=== PATIENT | female | born 1985 | race Caucasian/White ===

== ENCOUNTER 2016-12-25 17:11 | Emergency (ER) | payer OTHER ==
--- NOTE | 2016-12-25 18:42 | UC ---
Throat Pain/Nasal Sabas HPI - HPI Summary HPI Summary: FIVE DAYS OF SINUS CONGESTION AND WORSENING ASTHMA. HAS BEEN USING ALBUTEROL INHALERS AND NEBULIZER TO TREAT WHEEZING. SINUS PRESSURE AND COUGH SEEM TO BE WORSENING OVER THE LAST THREE DAYS. NO FEVER. - History of Current Complaint Stated Complaint: SINUS/ASTHMA Time Seen by Provider: 12/25/16 18:09 Hx Obtained From: Patient Onset/Duration: Gradual Onset, Lasting Days, Still Present Severity: Moderate Cough: Productive Associated Signs & Symptoms: Positive: Wheezing, Hoarseness, Sinus Discomfort, Nasal Discharge - Epiglottits Risk Factors Epiglottis Risk Factors: Negative - Allergies/Home Medications Allergies/Adverse Reactions: Allergies Allergy/AdvReac Type Severity Reaction Status Date / Time Sulfa Antibiotics Allergy Hives Verified 10/19/16 16:00 fresh fruit and veggies Allergy See Comment Uncoded 10/19/16 16:00 PMH/Surg Hx/FS Hx/Imm Hx Previously Healthy: Yes Cardiovascular History Of: Reports: Hypertension - preg induced HTN - Surgical History Surgical History: Yes Surgery Procedure, Year, and Place: x2 Csections. Hysterectomy - Family History Known Family History: Positive: Other - positive FMH myalgia Negative: Respiratory Disease - Social History Occupation: Employed Full-time Lives: With Family Alcohol Use: None Substance Use Type: None Smoking Status (MU): Current Some Day Smoker Review of Systems Constitutional: Negative Skin: Negative Eyes: Negative ENT: Nasal Discharge Respiratory: Cough Cardiovascular: Negative Gastrointestinal: Negative Genitourinary: Negative Motor: Negative Neurovascular: Negative Musculoskeletal: Negative Neurological: Negative Psychological: Negative All Other Systems Reviewed And Are Negative: Yes Physical Exam Triage Information Reviewed: Yes Appearance: No Pain Distress, Well-Nourished, Ill-Appearing - MILD Vital Signs Reviewed: Yes Eye Exam: Normal Eyes: Positive: Conjunctiva Clear ENT: Positive: Hearing grossly normal, Pharynx normal, TM bulging, TM dull Dental Exam: Normal Neck exam: Normal Neck: Positive: Supple, Nontender Respiratory: Positive: Chest non-tender, Lungs clear, Normal breath sounds, No respiratory distress, No accessory muscle use, Wheezing - SCANT/FAINT; PATIENT HAD RECENTLY TAKEN NEBULIZER AT HOME Cardiovascular Exam: Normal Cardiovascular: Positive: RRR, No Murmur, Pulses Normal, Brisk Capillary Refill Abdominal Exam: Normal Abdomen Description: Positive: Nontender, No Organomegaly Musculoskeletal Exam: Normal Musculoskeletal: Positive: Strength Intact, ROM Intact, No Edema Neurological Exam: Normal Psychological Exam: Normal Psychological: Positive: Normal Response To Family Skin Exam: Normal Throat Pain/Nasal Course/Dx - Differential Dx/Diagnosis Differential Diagnosis/HQI/PQRI: Otitis Media, Pharyngitis, Sinusitis, URI Provider Diagnoses: SINUSITIS. BRONCHITIS WITH BRONCHOSPASM Discharge - Discharge Plan Condition: Stable Disposition: HOME Prescriptions: Benzonatate CAP* [Tessalon CAP*] 100 mg PO TID PRN #15 cap PRN Reason: Cough DOXYcycline CAP(*) [DOXYcycline 100MG CAP(*)] 100 mg PO BID #20 cap predniSONE TAB* [Deltasone TAB*] 10 mg PO DAILY #28 tab Patient Education Materials: Asthma (ED), Sinusitis (ED), Bronchospasm (ED) Referrals: IAN Bob [Primary Care Provider] -
[2016-12-25 18:51] VITALS: BP 137/77
== END 2016-12-25 19:07 | disposition home or self-care (01) ==
LOC: UCEAST 17:11
DX: J32.9 Chronic sinusitis, unspecified (principal); J20.9 Acute bronchitis, unspecified; Z88.2 Allergy status to sulfonamides; Z72.0 Tobacco use
CPT/HCPCS: 99211; G0463

== ENCOUNTER 2018-01-13 16:15 | Emergency (ER) | payer SELFPAY ==
[2018-01-13 16:40] VITALS: BP 146/89
--- NOTE | 2018-01-13 17:50 | UC ---
Throat Pain/Nasal Sabas HPI - HPI Summary HPI Summary: 32 yo female ill x 1 week progressively worsening facial pressure and pain now wheezing and out of her inhaler no f/c no CP or sob - History of Current Complaint Chief Complaint: UCRespiratory Stated Complaint: SINUSES Time Seen by Provider: 01/13/18 17:31 Hx Obtained From: Patient Hx Last Menstrual Period: hysterectomy Onset/Duration: Gradual Onset, Lasting Weeks Severity: Mild Pain Intensity: 4 Pain Scale Used: 0-10 Numeric Cough: Nonproductive Associated Signs & Symptoms: Positive: Sinus Discomfort, Nasal Discharge - Allergies/Home Medications Allergies/Adverse Reactions: Allergies Allergy/AdvReac Type Severity Reaction Status Date / Time Sulfa (Sulfonamide Allergy Swelling Verified 01/13/18 16:35 Antibiotics) Of Face,Lips,& Throat Home Medications: Home Medications Albuterol 2.5MG/3ML (0.083%)* [Ventolin 2.5 MG/3 ML NEB.STACEY*] 1 inh TID PRN 04/27 [History Confirmed 01/13/18] PMH/Surg Hx/FS Hx/Imm Hx Previously Healthy: Yes Respiratory History: Asthma, Bronchitis - Surgical History Surgical History: Yes Surgery Procedure, Year, and Place: x2 Csections. Hysterectomy. Tonsil - Family History Known Family History: Positive: Hypertension, Other - positive FMH myalgia Negative: Respiratory Disease - Social History Alcohol Use: None Substance Use Type: None Smoking Status (MU): Former Smoker Amount Used/How Often: 1/2ppd Review of Systems Constitutional: Fatigue Skin: Negative Eyes: Negative ENT: Ear Ache, Nasal Discharge, Sinus Congestion, Sinus Pain/Tenderness Respiratory: Cough, Other - wheezing Cardiovascular: Negative Gastrointestinal: Negative Genitourinary: Negative Motor: Negative Neurovascular: Negative Musculoskeletal: Negative Neurological: Negative Psychological: Negative Is Patient Immunocompromised?: No All Other Systems Reviewed And Are Negative: Yes Physical Exam Triage Information Reviewed: Yes Appearance: Well-Appearing, No Pain Distress, Well-Nourished Vital Signs: Initial Vital Signs Temp 98.2 F 01/13/18 16:35 Pulse 91 01/13/18 16:35 Resp 18 01/13/18 16:35 BP 146/89 01/13/18 16:35 Pulse Ox 100 01/13/18 16:35 Vital Signs Reviewed: Yes Eyes: Positive: Conjunctiva Clear ENT: Positive: Hearing grossly normal, Nasal congestion, Nasal drainage, TMs normal, Sinus tenderness, Uvula midline. Negative: Tonsillar swelling, Tonsillar exudate, Trismus, Muffled voice, Hoarse voice, Dental tenderness Dental Exam: Normal Neck: Positive: Supple, Nontender, No Lymphadenopathy Respiratory: Positive: Lungs clear, Normal breath sounds, No respiratory distress, No accessory muscle use, Wheezing - with forced expiration Cardiovascular: Positive: RRR, No Murmur Musculoskeletal: Positive: ROM Intact, No Edema Neurological: Positive: Alert Psychological Exam: Normal Skin Exam: Normal Throat Pain/Nasal Course/Dx - Differential Dx/Diagnosis Provider Diagnoses: acute sinusitis. bronchospasm Discharge - Discharge Plan Condition: Stable Disposition: HOME Prescriptions: Albuterol 2.5MG/3ML (0.083%)* [Ventolin 2.5 MG/3 ML NEB.STACEY*] 2.5 mg INH QID #1 neb.stacey Albuterol HFA INHALER* [Ventolin HFA Inhaler*] 2 puff INH QID #1 mdi Amoxicillin PO (*) [Amoxicillin 875 MG (*)] 875 mg PO BID #20 tab predniSONE [Deltasone] 40 mg PO DAILY #10 tab Patient Education Materials: Sinusitis (ED) Forms: *Work Release Referrals: IAN Bob [Primary Care Provider] - If Needed
== END 2018-01-13 17:50 | disposition home or self-care (01) ==
LOC: UCCORT 16:15
DX: J01.90 Acute sinusitis, unspecified (principal); J98.01 Acute bronchospasm; Z88.1 Allergy status to other antibiotic agents; Z87.891 Personal history of nicotine dependence
CPT/HCPCS: 99212; G0463

== ENCOUNTER 2018-11-22 08:02 | Emergency (ER) | payer BC, OTHER ==
[2018-11-22 08:23] VITALS: BP 125/60
[2018-11-22] MEDS ORDERED: Albuterol 2.5 MG/3 ML NEB.SOL* (0.083%) INH ONE (08:41)
--- NOTE | 2018-11-22 08:45 | UC ---
Throat Pain/Nasal Sabas HPI - HPI Summary HPI Summary: Patient has has increased sinus pressure and SOB over the past 2-3 weeks, she denies fever, does have chills, body aches, and overall malaise, has had upsest stomach frequently - History of Current Complaint Chief Complaint: UCRespiratory Stated Complaint: CONGESTION BILATERAL EAR SORE THROAT Time Seen by Provider: 11/22/18 08:20 Hx Obtained From: Patient Hx Last Menstrual Period: hysterectomy ?: No Onset/Duration: Sudden Onset, Lasting Weeks Severity: Moderate Pain Intensity: 0 Cough: Nonproductive Associated Signs & Symptoms: Positive: Dysphagia, Wheezing, Sinus Discomfort, Nasal Discharge - Allergies/Home Medications Allergies/Adverse Reactions: Allergies Allergy/AdvReac Type Severity Reaction Status Date / Time Sulfa (Sulfonamide Allergy Swelling Verified 11/22/18 08:13 Antibiotics) Of Face,Lips,& Throat Home Medications: Home Medications Albuterol HFA INHALER* [Ventolin HFA Inhaler*] 2 puff INH Q4H PRN 11/22/18 [ History] Phenylephrine/Dm/Acetaminop/GG [Mucinex Fast-Max Cold Flu] 1 liq PO PRN [History] PMH/Surg Hx/FS Hx/Imm Hx - Surgical History Surgical History: Yes Surgery Procedure, Year, and Place: x2 Csections. Hysterectomy. Tonsil - Family History Known Family History: Positive: Hypertension, Other - positive FMH myalgia Negative: Respiratory Disease - Social History Alcohol Use: Rare Substance Use Type: None Smoking Status (MU): Former Smoker Amount Used/How Often: 1/2ppd Review of Systems All Other Systems Reviewed And Are Negative: Yes Constitutional: Positive: Fatigue Skin: Positive: Negative Eyes: Positive: Eye Redness ENT: Positive: Sore Throat, Ear Ache, Nasal Discharge, Sinus Congestion, Sinus Pain/Tenderness Respiratory: Positive: Shortness Of Breath, Cough Cardiovascular: Positive: Negative Gastrointestinal: Positive: Negative Genitourinary: Positive: Negative Motor: Positive: Negative Neurovascular: Positive: Negative Musculoskeletal: Positive: Negative Neurological: Positive: Headache Psychological: Positive: Negative Is Patient Immunocompromised?: No Physical Exam Triage Information Reviewed: Yes Appearance: Ill-Appearing, Pain Distress, Obese Vital Signs: Initial Vital Signs Temp 97.6 F 11/22/18 08:17 Pulse 86 11/22/18 08:17 Resp 15 11/22/18 08:17 BP 125/60 11/22/18 08:17 Pulse Ox 98 11/22/18 08:17 Vital Signs Reviewed: Yes Eye Exam: Normal Eyes: Positive: Conjunctiva Inflamed ENT: Positive: Pharyngeal erythema - with PND, Nasal congestion Dental Exam: Normal Neck exam: Normal Respiratory: Positive: Chest non-tender, No respiratory distress, Decreased breath sounds, Wheezing, Inspiration Cardiovascular Exam: Normal Cardiovascular: Positive: RRR, No Murmur, Pulses Normal Abdomen Description: Positive: Nontender, No Organomegaly, Soft Musculoskeletal Exam: Normal Neurological Exam: Normal Psychological Exam: Normal Skin Exam: Normal Throat Pain/Nasal Course/Dx - Course Course Of Treatment: hx obtained, exam performed ,meds reviewed, neb treatement given for SOB and wheezing. treated for sinusitis and bronchitis - Differential Dx/Diagnosis Differential Diagnosis/HQI/PQRI: Influenza, Laryngitis, Otitis Media, Pharyngitis, Sinusitis, URI Provider Diagnosis: Sinusitis, Bronchitis Discharge - Sign-Out/Discharge Documenting (check all that apply): Patient Departure All imaging exams completed and their final reports reviewed: No Studies - Discharge Plan Condition: Stable Disposition: HOME Patient Education Materials: Acute Bronchitis (ED) Referrals: No Primary Care Phys,NOPCP [Primary Care Provider] - - Billing Disposition and Condition Condition: STABLE Disposition: Home
== END 2018-11-22 09:12 | disposition home or self-care (01) ==
LOC: UCCORT 08:02
DX: J32.9 Chronic sinusitis, unspecified (principal); J40 Bronchitis, not specified as acute or chronic; Z88.1 Allergy status to other antibiotic agents; Z87.891 Personal history of nicotine dependence
CPT/HCPCS: 99212; G0463

== ENCOUNTER 2019-01-13 11:15 | Day surgery (SDC) | payer BC ==
[~2019-01-13 11:15] MED LIST: Buffered Lidocaine 1% SYRIN* 1 ML/SYRINGE INTRADERM ONE; Gelfoam 12-7 ADSORBABL SPONGE* 1 EA SPONGE ONE; Lactated Ringers 1000 ML Bag* 1,000 ML IV SCH; Lidocaine 2% EPI 1:200000 MPF*10-20 ML VIAL ONE; Oxymetazoline 0.05% NASAL SPR* 15 ML BTL ONE; Triamcinolone Acetonide* 40 MG/ML 1 ML VIAL ONE
[2019-01-13] MEDS ORDERED: Midazolam* 1 MG/ML 2 ML VIAL (2 MG) ONE (13:13)
[2019-01-13] MEDS ORDERED: fentaNYL* 50 MCG/ML 2 ML VIAL (100 MCG VIAL) ONE ×2 (13:13→15:09)
[2019-01-13] MEDS ORDERED: Succinylcholine* 20 MG/ML 10 ML VIAL ONE (13:13)
[2019-01-13] MEDS ORDERED: Cocaine 4% TOPICAL* 4 ML TOP.SOLN ONE (13:34)
[2019-01-13] MEDS ORDERED: Triamcinolone Acetonide* 40 MG/ML 1 ML VIAL ONE (13:34)
[2019-01-13] MEDS ORDERED: Lidocaine 2% EPI 1:200000 MPF*10-20 ML VIAL ONE (13:35)
[2019-01-13] MEDS ORDERED: Gelfoam 12-7 ADSORBABL SPONGE* 1 EA SPONGE ONE ×3 (13:35→14:31)
[2019-01-13] MEDS ORDERED: Metoclopramide IV* 5 MG/ML 2 ML VIAL ONE (14:01)
[2019-01-13] MEDS ORDERED: Dexamethasone IV* 4 MG/ML 1 ML (4 MG) ONE (14:01)
[2019-01-13] MEDS ORDERED: Ondansetron INJ* 2 MG/ML VIAL ONE (14:01)
[2019-01-13] MEDS ORDERED: EPHEDrine (Pressors)* 50 MG/ML VIAL ONE (14:12)
[2019-01-13] MEDS ORDERED: Naloxone* 0.4 MG/ML 1 ML VIAL IV PRN (14:14)
[2019-01-13] MEDS ORDERED: oxyCODONE TAB* 5 MG TAB PO PRN (14:14)
[2019-01-13] MEDS ORDERED: DiMENhydriNATE IV* 50 MG/ML VIAL IV PUSH PRN (14:14)
[2019-01-13] MEDS ORDERED: Acetaminophen TAB* 325 MG PO PRN (14:14)
[2019-01-13] MEDS ORDERED: oxyCODONE TAB* 5 MG TAB ONE (15:09)
[2019-01-13] MEDS: fentaNYL* 50 MCG/ML 2 ML VIAL (100 MCG VIAL) IV PRN ×2 (15:11→15:39)
[2019-01-13 16:35] VITALS: BP 128/74
--- NOTE | 2019-01-13 21:33 | OP ---
DATE OF OPERATION: 01/13/19 - [facility] DATE OF : 87 SURGEON: Gary Pham MD. PREOPERATIVE DIAGNOSIS: Chronic sinusitis, right maxillary sinus, and deviated septum and hypertrophy of inferior turbinates with nasal dyspnea. POSTOPERATIVE DIAGNOSIS: Chronic sinusitis, right maxillary sinus, and deviated septum and hypertrophy of inferior turbinates with nasal dyspnea. OPERATIVE PROCEDURE: 1. Maxillary antrostomy, removal of tissue, right side. 2. Septoplasty, submucosal resection of inferior turbinates, bilateral. CLINICAL IMPRESSION/BRIEF HISTORY: This is a pleasant 33-year-old female with longstanding history of chronic symptoms of sinusitis, with CT findings showing atelectatic opacified right maxillary sinus with deviation of the septum with nasal dyspnea on examination, failing medical management. DESCRIPTION OF PROCEDURE: The patient was taken to the operating room. General anesthesia was given. The patient was intubated. Nose was decongested with cocaine pledgets. Lidocaine 2% was then infiltrated in the mucosa of the septum and to the uncinate region on the right side and middle turbinate region on the right side. We initially turned our attention to the right side uncinate process by peeling it out anteriorly and micro-shaving it away. The antrostomy was then identified and enlarged. Thick polypoidal and mucoid discharge was then suctioned and micro-shaved away. This allowed copious irrigation of the antrum. We then turned our attention to the septum and right hemitransfixion incision created, mucoperichondrial flap was elevated. The quadrangular cartilage was disarticulated and the vomer-ethmoidal complex abutting into the right nasal vestibule was removed. This allowed straightening of the cartilage, which was then replaced in the midline. This was secured with small pieces of Gelfoam. We then turned our attention to the inferior turbinate. Submucosal resection was carried out, making small incisions of submucosal tissue and elevating it, then removing some of the submucosal bone and then subsequently cauterizing the inferior turbinate region where the bone was removed for hemostasis. Once this was done, the patient was then awakened, extubated, and sent to recovery room in stable condition. Instrument and sponge counts were correct. Blood loss minimal. [id number]/[facility] #: [id number] [facility]
== END 2019-01-13 16:36 | disposition home or self-care (01) ==
LOC: OR 11:15
PROVIDERS: ATTEND Otolaryngology
DX: J32.0 Chronic maxillary sinusitis (principal); J34.2 Deviated nasal septum; J34.3 Hypertrophy of nasal turbinates; J45.909 Unspecified asthma, uncomplicated; Z87.891 Personal history of nicotine dependence; R43.0 Anosmia
CPT/HCPCS: A9270-GY; J0330; J1100; J2250; J2405; J2765; J3010; J3301

== ENCOUNTER 2019-03-24 17:12 | Emergency (ER) | payer BC ==
[2019-03-24 17:28] VITALS: BP 133/52
--- NOTE | 2019-03-24 18:13 | UC ---
Throat Pain/Nasal Sabas HPI - HPI Summary HPI Summary: Pt presents with c/o nasal congestion, sinus pressure and pain X 10 days that has worsened over the last 2 days. Pt has hx of sinusitis, had sinus surgery [address] Terrell, Pt states that she had a fever last week, is taking allergy medicine, as prescribed with no improvement. Pt recently began allergy shots to improve allergy symptoms. Also, c/o cough and sob and wheezing over the last 4 days. - History of Current Complaint Chief Complaint: UCGeneralIllness Stated Complaint: SINUSES Time Seen by Provider: 03/24/19 18:06 Hx Obtained From: Patient Hx Last Menstrual Period: hysterectomy ?: No Onset/Duration: Gradual Onset, Lasting Days - 10, Still Present, Worse Since - onset Severity: Moderate Pain Intensity: 4 Cough: Nonproductive Associated Signs & Symptoms: Positive: Wheezing, Sinus Discomfort, Nasal Discharge Related History: Seasonal Allergies, Prior ENT Surgery - Epiglottits Risk Factors Epiglottis Risk Factors: Negative - Allergies/Home Medications Allergies/Adverse Reactions: Allergies Allergy/AdvReac Type Severity Reaction Status Date / Time apple Allergy Severe Swelling Verified 01/13/19 11:39 Of Face,Lips,& Throat Tree Nuts Allergy Intermediate Swelling Verified 01/13/19 11:39 Of Face,Lips,& Throat kiwi Allergy Mild Swelling Verified 01/13/19 11:39 Of Face,Lips,& Throat peanut Allergy Mild Swelling Verified 01/13/19 11:39 Of Face,Lips,& Throat strawberry Allergy Mild Swelling Verified 01/13/19 11:39 Of Face,Lips,& Throat Sulfa (Sulfonamide Allergy Swelling Verified 01/13/19 11:39 Antibiotics) Of Face,Lips,& Throat Home Medications: Home Medications Phenylephrine/Dm/Acetaminop/GG [Multi-Symptom Cold Caplet] 1 each PO Q6HR PRN [History Confirmed 03/24/19] PMH/Surg Hx/FS Hx/Imm Hx Previously Healthy: Yes - Surgical History Surgical History: Yes Surgery Procedure, Year, and Place: C sections x 2 [facility] [place]. Hysterectomy [facility]. Tonsillectomy [facility]. sinus surgery 2019 - Family History Known Family History: Positive: Hypertension, Other - positive FMH myalgia Negative: Respiratory Disease - Social History Occupation: Employed Full-time Lives: With Family Alcohol Use: None Substance Use Type: None Smoking Status (MU): Former Smoker Amount Used/How Often: 1/2ppd Have You Smoked in the Last Year: No - Immunization History Vaccination Up to Date: Yes Review of Systems All Other Systems Reviewed And Are Negative: Yes Constitutional: Positive: Fever, Chills, Fatigue Skin: Positive: Negative Eyes: Positive: Negative ENT: Positive: Sinus Congestion, Sinus Pain/Tenderness Respiratory: Positive: Cough Cardiovascular: Positive: Negative Gastrointestinal: Positive: Negative Genitourinary: Positive: Negative Motor: Positive: Negative Neurovascular: Positive: Negative Musculoskeletal: Positive: Myalgia Neurological: Positive: Headache Psychological: Positive: Negative Is Patient Immunocompromised?: No Physical Exam Triage Information Reviewed: Yes Appearance: Ill-Appearing Vital Signs: Initial Vital Signs Temp 98.2 F 03/24/19 17:23 Pulse 69 03/24/19 17:23 Resp 16 03/24/19 17:23 BP 133/52 03/24/19 17:23 Pulse Ox 100 03/24/19 17:23 Vital Signs Reviewed: Yes Eye Exam: Normal ENT: Positive: Nasal congestion, Sinus tenderness Dental Exam: Normal Neck exam: Normal Respiratory: Positive: Wheezing Cardiovascular Exam: Normal Musculoskeletal Exam: Normal Neurological Exam: Normal Psychological Exam: Normal Skin Exam: Normal Throat Pain/Nasal Course/Dx - Differential Dx/Diagnosis Differential Diagnosis/HQI/PQRI: Influenza, Sinusitis, URI Provider Diagnosis: Sinusitis Discharge - Sign-Out/Discharge Documenting (check all that apply): Patient Departure All imaging exams completed and their final reports reviewed: No Studies - Discharge Plan Condition: Stable Disposition: HOME Prescriptions: DOXYcycline CAP(*) [DOXYcycline 100MG CAP(*)] 100 mg PO Q12H #20 cap predniSONE TAB* [Deltasone 10 MG TAB*] 30 mg PO DAILY #12 tab Patient Education Materials: Sinusitis (ED) Referrals: Gary Pham MD [Medical Doctor] - If Needed Sunday Kay PA [Primary Care Provider] - If Needed Additional Instructions: Please follow up with your PCP and your ENT specialist as needed. - Billing Disposition and Condition Condition: STABLE Disposition: Home - Attestation Statements Provider Attestation: This patient was not seen by me. I was available for consult.
== END 2019-03-24 18:23 | disposition home or self-care (01) ==
LOC: UCCORT 17:12
DX: J32.9 Chronic sinusitis, unspecified (principal); Z88.2 Allergy status to sulfonamides; Z87.891 Personal history of nicotine dependence
CPT/HCPCS: 99212; G0463

== ENCOUNTER 2019-05-05 12:00 | Emergency (ER) | payer BC, OTHER ==
--- OUTSIDE RECORDS SUMMARY | 2019-05-05 12:11 | XMS REPORT | Continuity of Care Document ---
:1985 External Reference #:[id number] Author Name Gary Pham MD Address [address] [place] [address] Care Team Providers Name Role Phone Sunday Kay Primary Care Physician Unavailable Payers Date Identification Numbers Payment Provider Subscriber Policy Number: [id number] [facility] Desiree Corley Group Number: [id number] [address] PayID: [id number] [place] [address] Problems Active Problems Provider Date Allergic rhinitis Kendall Weber MD Onset: 08/16/2011 Allergic rhinitis due to pollen Kendall Weber MD Onset: 08/16/2011 Allergic rhinitis Kendall Weber MD Onset: 08/16/2011 H/O: food allergy Kendall Weber MD Onset: 08/16/2011 Family History Date Family Member(s) Observation Comments General Allergies General Asthma General Diabetes General Migraine Social History Type Date Description Comments Sex Unknown Occupation Retail Tobacco Use Start: Unknown Never Smoked Cigars Tobacco Use Start: Unknown Never Smoked A Pipe Smoking Status Reviewed: 01/28/19 Never Smoked A Pipe Smokeless Tobacco Never Used Smokeless Tobacco ETOH Use Currently rarely consumes alcohol Tobacco Use Start: Unknown End: Unknown Patient is a former smoker Allergies, Adverse Reactions, Alerts Active Allergies Reaction Severity Comments Date sulfa red blotches, difficulty 05/30/2011 breathing Peanut-containing Drug 01/08/2019 Products Tree Nuts 01/08/2019 Medications Active Medications SIG Qnty Indications Ordering Provider Date Azelastine HCL (Nasal) 2 sprays in each 30ml J31.0 Gary Pham MD 05/2019 nostril one times 0.15% Solution per day Mupirocin Calcium use as directed. 45gm Gary Pham MD 01/29/2019 2% Cream Xyzal Prn Unknown 5mg Tablets Saline Mist [place] Prn Unknown 0.65% Solution Albuterol Sulfate Prn Unknown (2.5mg/3ML) 0.083% Nebulizer Symbicort [facility] 80-4.5mcg/Act M.D. Aerosol Nasacort Allergy 24HR 2 puffs one per Unknown day both sides 55mcg/Act Aerosol Amoxicillin/Clavulanat [facility] e Potassium M.D. 875-125mg Tablets Prednisone [facility] 5mg Tablets M.D. History Medications Prednisone 20mg by mouth 10tabs J34.3 Gary Pham MD 02/12/2019 - 20mg one per day in 03/31/2019 Tablets in the morning Benadryl Unknown - 11/30/2018 Aleve Unknown - 11/27/2018 Vital Signs Date Vital Result Comment 04/16/2019 8:44am Weight 220.00 lb Weight 99.792 kg Height 62 inches 5'2" Height in cm's 157.5 cm BMI (Body Mass Index) 40.2 kg/m2 04/01/2019 9:28am Weight 220.00 lb Weight 99.792 kg Height 62 inches 5'2" Height in cm's 157.5 cm BMI (Body Mass Index) 40.2 kg/m2 03/15/2019 1:57pm Weight 222.00 lb Weight 100.699 kg Height 62 inches 5'2" Height in cm's 157.5 cm BMI (Body Mass Index) 40.6 kg/m2 02/25/2019 2:35pm Weight 222.00 lb Weight 100.699 kg Height 62 inches 5'2" Height in cm's 157.5 cm BMI (Body Mass Index) 40.6 kg/m2 02/12/2019 9:53am Weight 222.00 lb Weight 100.699 kg Height 62 inches 5'2" Height in cm's 157.5 cm BMI (Body Mass Index) 40.6 kg/m2 01/29/2019 8:44am Weight 218.00 lb Weight 98.885 kg Height 62 inches 5'2" Height in cm's 157.5 cm BMI (Body Mass Index) 39.9 kg/m2 01/18/2019 9:23am Weight 218.00 lb Weight 98.885 kg Height 62 inches 5'2" Height in cm's 157.5 cm BMI (Body Mass Index) 39.9 kg/m2 01/08/2019 8:34am BP Systolic 143 mmHg BP Diastolic 97 mmHg Heart Rate 81 /min Respiratory Rate 18 /min Weight 218.00 lb Weight 98.885 kg Height 62 inches 5'2" Height in cm's 157.5 cm BMI (Body Mass Index) 39.9 kg/m2 12/11/2018 10:12am Weight 212.00 lb Weight 96.163 kg Height 62 inches 5'2" Height in cm's 157.5 cm BMI (Body Mass Index) 38.8 kg/m2 11/30/2018 11:02am Weight 212.00 lb Weight 96.163 kg Height 62 inches 5'2" Height in cm's 157.5 cm BMI (Body Mass Index) 38.8 kg/m2 05/30/2011 10:10am BP Systolic 136 mmHg BP Diastolic 97 mmHg Heart Rate 68 /min Respiratory Rate 16 /min Weight 206.00 lb Weight 93.442 kg Height 65 inches 5'5" Height in cm's 165.1 cm BMI (Body Mass Index) 34.3 kg/m2 Results Test Date Facility Test Result H/L Range Note Laboratory test 05/30/2011 [facility] ( SEE NOTE) 1 finding c/o [place] [address] [phone] [facility] (SEE NOTE) 2 [facility] [place] (SEE NOTE) 3 [facility] (SEE NOTE) 4 1 TEST RESULT RETURNED FROM REFERENCE LABORATORY. HARDCOPY REPORT TO BE SENT TO PHYSICIAN(S) OFFICE. 2 TEST RESULT RETURNED FROM REFERENCE LABORATORY. HARDCOPY REPORT TO BE SENT TO PHYSICIAN(S) OFFICE. 3 TEST RESULT RETURNED FROM REFERENCE LABORATORY. HARDCOPY REPORT TO BE SENT TO PHYSICIAN(S) OFFICE. 4 TEST RESULT RETURNED FROM REFERENCE LABORATORY. HARDCOPY REPORT TO BE SENT TO PHYSICIAN(S) OFFICE. Procedures Date Code Description Status 04/01/2019 76323 Nasal Endoscopy, Diagnostic Completed 03/15/2019 91033 Removal Wax Impaction Completed 02/25/2019 87711 Nasal Endoscopy, Diagnostic Completed 02/12/2019 12614 Nasal Endoscopy, Diagnostic Completed 01/13/2019 28791 Nasal Endoscopy W/Maxllary Antrostomy W/Excision Of Poylp Completed 01/13/2019 88770 Submuccous Resection Turbinate, Partial Or Complete Completed Encounters Type Date Location Provider Dx Diagnosis Office Visit 04/16/2019 [place] Gary Pham J32.9 Chronic sinusitis, 8:30a 11/10/07 unspecified J34.3 Hypertrophy of nasal turbinates J31.0 Chronic rhinitis Office Visit 04/01/2019 [place] Gary Pham J32.9 Chronic 9:15a 11/10/07 MD sinusitis, unspecified J34.3 Hypertrophy of nasal turbinates Office Visit 01/18/2019 9:15a [place] 11/10/07 Esther Alvarado J31.0 Chronic PA-C rhinitis J32.9 Chronic sinusitis, unspecified J34.3 Hypertrophy of nasal turbinates R43.0 Anosmia Office Visit 01/08/2019 8:30a [place] 11/10/07 Vero Gary J31.0 Chronic MD rhinitis J32.9 Chronic sinusitis, unspecified J34.3 Hypertrophy of nasal turbinates R43.0 Anosmia Office Visit 12/11/2018 10:15a [place] 11/10/07 Rup[place], Gary J31.0 Chronic MD rhinitis J32.9 Chronic sinusitis, unspecified J34.3 Hypertrophy of nasal turbinates Office Visit 11/30/2018 10:45a [place] 11/10/07 Luizelia Gary J31.0 Chronic MD rhinitis R43.0 Anosmia J32.9 Chronic sinusitis, unspecified Office Visit 06/26/2011 2:45p [place] 11/10/07 Kendall Chan 477.8 RhinitisTia MD [place], Allergy 477.0 Rhinitis, Seasonal -Allergic Due To Pollen Office Visit 05/30/2011 10:45a [place] 11/10/07 Kendall Chan 477.9 Rhinitis, MD Tia Allergic V15.05 Allergy To Other Foods Plan of Treatment Future Appointment(s):10/15/2019 8:30 am - Gary Pham MD at [place] - Gary Pham MDJ32.9 Chronic sinusitis, cfslknjadqeN39.3 Hypertrophy of nasal mtxdfaxnqbE85.0 Chronic rhinitisNew Medication:Azelastine HCL (Nasal) 0.15 % - 2 sprays in each nostril one times per dayComments:Suggest adding is a lasting to her topical nasal steroids she already is taking is lasting is an eyedrop. This may improve some of her congestion symptoms and postnasal symptoms but there is no evidence of infection today we checked back 6 months.
[2019-05-05 12:37] VITALS: BP 142/83
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
== END 2019-05-05 14:34 | disposition home or self-care (01) ==
LOC: UCEAST 12:00
DX: S16.1XXA Strain of muscle, fascia and tendon at neck level, initial encounter (principal); V49.40XA Driver injured in collision with unspecified motor vehicles in traffic accident, initial encounter; Y92.410 Unspecified street and highway as the place of occurrence of the external cause; F17.210 Nicotine dependence, cigarettes, uncomplicated
CPT/HCPCS: 72020; 72040; 99213; G0463

== ENCOUNTER 2019-09-27 11:29 | Day surgery (SDC) | payer BC ==
[~2019-09-27 11:29] MED LIST changes: -Gelfoam 12-7 ADSORBABL SPONGE* 1 EA SPONGE ONE; -Lidocaine 2% EPI 1:200000 MPF*10-20 ML VIAL ONE; -Oxymetazoline 0.05% NASAL SPR* 15 ML BTL ONE; -Triamcinolone Acetonide* 40 MG/ML 1 ML VIAL ONE
[2019-09-27] MEDS ORDERED: ceFAZolin 2 GM in NS PREMIX(*) 2 GM/100 ML BAG IVPB ONE (12:25)
[2019-09-27] MEDS ORDERED: fentaNYL* 50 MCG/ML 2 ML VIAL (100 MCG VIAL) ONE ×2 (14:10→15:43)
[2019-09-27] MEDS ORDERED: Midazolam* 1 MG/ML 2 ML VIAL (2 MG) ONE (14:10)
[2019-09-27] MEDS ORDERED: Bupivacaine 0.25% SDV PF* 10 ML VIAL INJ ONE (14:36)
[2019-09-27] MEDS ORDERED: Dexamethasone IV* 4 MG/ML 1 ML (4 MG) ONE (15:06)
[2019-09-27] MEDS ORDERED: Lidocaine 2% PF * 5 ML VIAL ONE (15:06)
[2019-09-27] MEDS ORDERED: Propofol* 10 MG/ML 20 ML BTL ONE (15:06)
[2019-09-27] MEDS ORDERED: Ondansetron INJ* 2 MG/ML VIAL ONE (15:06)
[2019-09-27] MEDS ORDERED: Naloxone* 0.4 MG/ML 1 ML VIAL IV PRN (15:38)
[2019-09-27] MEDS ORDERED: Acetaminophen TAB* 325 MG PO PRN (15:38)
[2019-09-27] MEDS ORDERED: HYDROcodone/ACETAMIN 5-325 MG* 1 TAB PO PRN (15:38)
[2019-09-27] MEDS ORDERED: HYDROcodone/ACETAMIN 5-325 MG* 1 TAB ONE (16:17)
[2019-09-27] MEDS ORDERED: HYDROmorphone INJ1* 1 MG/ML SYRINGE ONE (16:18)
[2019-09-27] MEDS: HYDROmorphone INJ1* 1 MG/ML SYRINGE IV PRN ×2 (16:19→16:32)
[2019-09-27 17:46] VITALS: BP 120/75
--- NOTE | 2019-09-27 22:22 | OP ---
DATE OF OPERATION: 09/27/19 - [facility] DATE OF : 87 SURGEON: Nick Rebolledo MD CHARGING MANIPULATOR: JAY Mg ANESTHESIOLOGIST: Dr. Hickman. ANESTHESIA: General. PRE-OP DIAGNOSES: 1. Left carpal tunnel syndrome. 2. Left cubital tunnel syndrome. POST-OP DIAGNOSES: 1. Left carpal tunnel syndrome. 2. Left cubital tunnel syndrome. OPERATIVE PROCEDURES: 1. Left endoscopic carpal tunnel release. 2. Left in situ cubital tunnel release. INDICATIONS: Ms. Corley has very severe cubital tunnel and some signs and symptoms of carpal tunnel as well. We had talked about treatment options, the risks and benefits, she had wanted to proceed. ESTIMATED BLOOD LOSS: 2 mL. COMPLICATIONS: None. FINDINGS: See above and below. DESCRIPTION OF PROCEDURE: Ms. Corley was seen in the preoperative holding area. The correct site, side and procedure were identified. We came back to the operating room. The arm was prepped and draped in the usual fashion and a time- out was performed. The arm was exsanguinated with the Esmarch and the tourniquet inflated to 250 mmHg. I made a 1 cm transverse incision just ulnar to palmaris longus tendon area. Dissection was carried down. The distal antebrachial fascia was split bluntly with the tenotomy scissors. A 2-prong skin hook was placed. The carpal tunnel was dilated and dried out with the dilators, followed by Q-tip. The MicroAire endoscopic carpal tunnel system was introduced. The release was carried out from distal to proximal under direct visualization. The tenotomy scissors were used to release the distal antebrachial fascia proximally. Once the release was completely confirmed, we irrigated out the wound and the skin was closed with 4-0 Prolene suture. I then made abducted and externally rotated the arm. I made a curvilinear incision centered over the cubital tunnel. Dissection was carried down through the subcutaneous tissue. The fascia overlying the ulnar nerve was identified and opened up proximal to the David's ligament. An appendiceal retractor was placed and release was carried up all the way past the arcade of [place] and then came distally and right underneath David's ligament, the nerve was very compressed. I carried the release through that. The superficial FCU fascia was released. The two ends of the FCU were released. The subfascial layer was released. At this point, everything was looking good. That one spot was clearly where it had been compressed. I made sure there was absolutely nothing compressing the nerve. We flexed and extended the elbow. There was no subluxation. Hemostasis was obtained with Bovie. The wound was irrigated out. Subcutaneous tissue was reapproximated with 3-0 Vicryl. Skin was closed with 3-0 Monocryl and Steri- Strips. 0.25% Marcaine was infiltrated all around the operative areas. The wounds were dressed with 4x4s, sterile Webril, and ABD at the elbow and then an Jose bandage. She was taken to the recovery room in stable condition. [id number]/[facility] #: [id number] DENISA
== END 2019-09-27 17:46 | disposition home or self-care (01) ==
LOC: OR 11:29
PROVIDERS: ATTEND Orthopaedic Surgery Hand Surgery
DX: G56.02 Carpal tunnel syndrome, left upper limb (principal); G56.22 Lesion of ulnar nerve, left upper limb; J45.909 Unspecified asthma, uncomplicated; E66.9 Obesity, unspecified; F17.210 Nicotine dependence, cigarettes, uncomplicated
CPT/HCPCS: J0690; J1100; J1170; J2250; J2405; J2704; J3010; J3490

== ENCOUNTER 2019-10-18 09:26 | Day surgery (SDC) | payer BC ==
[~2019-10-18 09:26] MED LIST changes: +Dexamethasone IV* 4 MG/ML 1 ML (4 MG) IV SLOW PU ONE; +Famotidine IV* 10 MG/ML 2 ML (20 mg) IV ONE; +Levalbuterol 0.63MG/3ML NEB* UNIT OF USE INH ONE
[2019-10-18] MEDS ORDERED: Levalbuterol 0.63MG/3ML NEB* UNIT OF USE INH ONE (10:36)
[2019-10-18] MEDS ORDERED: ceFAZolin 2 GM PREMIX in ORs 2 GM/50 ML BAG ONE (10:36)
[2019-10-18] MEDS ORDERED: Famotidine IV* 10 MG/ML 2 ML (20 mg) ONE (10:36)
[2019-10-18] MEDS ORDERED: Dexamethasone IV* 4 MG/ML 1 ML (4 MG) ONE (10:36)
[2019-10-18] MEDS ORDERED: Midazolam* 1 MG/ML 5 ML VIAL (5 MG) ONE (12:00)
[2019-10-18] MEDS ORDERED: fentaNYL* 50 MCG/ML 5 ML VIAL (250 MCG VIAL) ONE (12:00)
[2019-10-18] MEDS ORDERED: Ketorolac INJ* 30 MG/ML 1 ML VIAL ONE (12:01)
[2019-10-18] MEDS ORDERED: Lidocaine 2% PF * 5 ML VIAL ONE (12:01)
[2019-10-18] MEDS ORDERED: Propofol* 10 MG/ML 20 ML BTL ONE (12:01)
[2019-10-18] MEDS ORDERED: Ondansetron INJ* 2 MG/ML VIAL ONE (12:01)
[2019-10-18] MEDS ORDERED: Bupivacaine 0.25% SDV* 30 ML ONE (12:23)
[2019-10-18] MEDS ORDERED: Ondansetron INJ* 2 MG/ML VIAL IV PRN (14:04)
[2019-10-18] MEDS ORDERED: Naloxone* 0.4 MG/ML 1 ML VIAL IV PRN (14:04)
[2019-10-18] MEDS ORDERED: DiMENhydriNATE IV* 50 MG/ML VIAL IV PUSH PRN (14:04)
[2019-10-18] MEDS ORDERED: Scopolamine 1.5 mg* PATCH TRANSDERM PRN (14:04)
[2019-10-18] MEDS ORDERED: oxyCODONE/Acetamin 5/325 MG* TAB PO PRN (14:04)
[2019-10-18] MEDS ORDERED: fentaNYL* 50 MCG/ML 2 ML VIAL (100 MCG VIAL) ONE ×2 (14:52→15:20)
[2019-10-18] MEDS: fentaNYL* 50 MCG/ML 2 ML VIAL (100 MCG VIAL) IV PRN ×3 (14:53→15:22)
[2019-10-18] MEDS ORDERED: oxyCODONE/Acetamin 5/325 MG* TAB ONE (14:58)
[2019-10-18 16:11] VITALS: BP 112/76
--- NOTE | 2019-10-18 22:22 | OP ---
DATE OF OPERATION: 10/18/19 - [facility] DATE OF : 87 SURGEON: Nick Rebolledo MD. SCHOOL OPERATIONS MANAGER: JAY Mg. An cardiovascular physician assistant was needed for the procedure to aid in positioning of the arm and retraction. ANESTHESIOLOGIST: Dr. Frost. ANESTHESIA: General. PRE-OP DIAGNOSES: 1. Right carpal tunnel syndrome. 2. Right cubital tunnel syndrome. POST-OP DIAGNOSES: 1. Right carpal tunnel syndrome. 2. Right cubital tunnel syndrome. OPERATIVE PROCEDURE: 1. Right endoscopic carpal tunnel release. 2. Right in-situ cubital tunnel release. INDICATIONS: Ms. Corley has the aforementioned conditions. We talked about treatment options, risks and benefits. She wanted to proceed with surgery. ESTIMATED BLOOD LOSS: 2 mL. COMPLICATIONS: None. FINDINGS: See above and below. DESCRIPTION OF PROCEDURE: Ms. Corley was seen in the preoperative holding area. The correct site, side and procedure were identified. We came back to the operating room. The arm was prepped and draped in the usual fashion and a time- out was performed. The arm was exsanguinated with the Esmarch and the tourniquet was inflated to 250 mmHg. I went ahead and made a 1 cm transverse incision just ulnar to the palmaris longus tendon. Dissection was carried down. The distal antebrachial fascia was split transversely with the tenotomy scissors. The 2-pronged skin hook was placed. The carpal tunnel was dilated open and then the MicroAire Endoscopic Carpal Tunnel System was introduced. When I had it in the appropriate location, I elevated the blade and the release was carried out from distal to proximal. Once I had confirmed the release distally, I released the distal antebrachial fascia proximally. At this point, everything was looking very good. The wound was irrigated out. Skin was closed with 4-0 Prolene suture and Steri-Strips. I then abducted and externally rotated the arm. I made a curvilinear incision centered over the cubital tunnel. Dissection was carried down through the subcutaneous tissue. The release was started just proximal to the David's ligament. The fascia was opened. The release was carried out past the arcade of [place] with the use of an appendiceal retractor for visualization. I then came distally and released the David's ligament. I then released the superficial FCU fascia. The two heads of the FCU were split and the subfascial layer was released. I checked for any instability of the nerve. There was none. The decompression was looking very nice. Hemostasis was obtained. The subcutaneous tissue was reapproximated with 3-0 Vicryl. Skin was closed with 3-0 Monocryl and Steri- Strips. Marcaine 0.25% was infiltrated around all of the operative sites. Soft dressing was applied and she was taken to recovery room in stable condition. [id number]/[facility] #: [id number] MTDWilliam
== END 2019-10-18 16:12 | disposition home or self-care (01) ==
LOC: OR 09:26
PROVIDERS: ATTEND Orthopaedic Surgery Hand Surgery
DX: G56.01 Carpal tunnel syndrome, right upper limb (principal); G56.21 Lesion of ulnar nerve, right upper limb; F17.210 Nicotine dependence, cigarettes, uncomplicated; Z88.1 Allergy status to other antibiotic agents
CPT/HCPCS: A9270-GY; J0690; J1100; J1885; J2250; J2405; J2704; J3010; J3490